=== PATIENT | male | born 1940 | race Caucasian/White ===

== ENCOUNTER 2018-01-19 07:48 | Inpatient (IN) | payer MEDICARE, BC ==
[~2018-01-19] VITALS: Ht 185.4 cm; Wt 197.0 kg
[~2018-01-19 07:48] MED LIST: ACET200V24 PO; ALLO100T PO; AMIO200T57 PO; AMLO10TA4 PO; APIX5TAB3 PO; ASPI-1265 PO; CARV3.12 PO; CHOL400T14 PO; DOXY50CA2 PO; FISH12002 PO; FLO0.4C PO; LOSA25TA96 PO; MULT-1172 PO
[2018-01-19] MEDS ORDERED: tamsulosin 0.4mg capsule PO SCH ×2 (08:00→21:00)
[2018-01-19] MEDS ORDERED: normal saline 1000ML IV soln IVB ONE (08:15)
[2018-01-19 08:25] LABS: BASOPHILS % (AUTO) 0.3 % (0-1); EOSINOPHILS # (AUTO) 0.1 X10'3 (0-0.9); EOSINOPHILS % (AUTO) 0.6 % (0-6); HEMATOCRIT 34.8 % (42.0-52.0); HEMOGLOBIN 11.3 g/dl (14.0-17.9); LYMPHOCYTES # (AUTO) 0.7 X10'3 (1.1-4.8); MEAN CORPUSCULAR HEMOGLOBIN 30.8 PG (27.0-31.0); MEAN CORPUSCULAR HGB CONC 32.5 % (33.0-36.5); MEAN CORPUSCULAR VOLUME 94.8 FL (78-98); MEAN PLATELET VOLUME 6.7 FL (7.4-10.4); MONOCYTES # (AUTO) 0.4 X10'3 (0-0.9); NEUTROPHILS # (AUTO) 11.3 X10'3 (1.8-7.7); NEUTROPHILS % (AUTO) 90.1 % (42-75); PLATELET COUNT 240 X10'3 (140-440); RED BLOOD COUNT 3.67 X10'6 (4.70-6.10); RED CELL DISTRIBUTION WIDTH 16.3 % (11.5-14.5); WHITE BLOOD COUNT 12.5 X10'3 (4.5-11.0)
[2018-01-19 08:39] LABS: ALANINE AMINOTRANSFERASE 17 U/L (12-78); ALBUMIN 3.7 G/DL (3.4-5.0); ALBUMIN/GLOBULIN RATIO 1.1 (1.1-1.5); ALKALINE PHOSPHATASE 98 IU/L (46-116); ANION GAP 13 (8-16); ASPARTATE AMINO TRANSFERASE 11 U/L (10-37); BILIRUBIN,TOTAL 0.8 MG/DL (0.1-1.0); BLOOD UREA NITROGEN 43 MG/DL (7-18); BUN/CREATININE RATIO 16.1 (5.4-32.0); CALCIUM 10.2 MG/DL (8.5-10.1); CHLORIDE 103 MMOL/L (99-107); CREATININE 2.67 MG/DL (0.60-1.10); GLUCOSE 157 MG/DL (70-104); LIPASE 226 U/L (73-393); POTASSIUM 4.2 MMOL/L (3.5-5.1); SODIUM 140 MMOL/L (135-145); TOTAL CARBON DIOXIDE 24.5 MMOL/L (24-32); TOTAL PROTEIN 7.1 G/DL (6.4-8.2); eGFR 23 ML/MIN
[2018-01-19] MEDS ORDERED: piperacillin/tazo 3.375gm/50ml 50 ML IV STA (10:08)
[2018-01-19] MEDS ORDERED: morphine 4 MG/ML inj SYRINge IV ONE (10:55)
[2018-01-19] MEDS ORDERED: magnesium hydroxide 30ml (MOM) UD suspension PO PRN (11:05)
[2018-01-19] MEDS ORDERED: potassium Cl 40MEQ/NS 500ml 500 ML IV PRN ×2 (11:05)
[2018-01-19] MEDS ORDERED: magnesium 4gm in 100ml NS 100 ML IV PRN (11:05)
[2018-01-19] MEDS ORDERED: acetaminophen 325mg tablet PO PRN (11:05)
[2018-01-19] MEDS ORDERED: magnesium/D5W IVPB 50 ML IV PRN (11:05)
[2018-01-19] MEDS ORDERED: mag hydrox/Alum hydrox/simeth 30ml oral suspension PO PRN (11:05)
[2018-01-19] MEDS ORDERED: ondansetron/PF 4mg/2ml inj IV PRN (11:05)
[2018-01-19] MEDS ORDERED: bisacodyl 10mg suppository rectal RC PRN (11:05)
[2018-01-19] MEDS: K and/or MAG REPLACEMENT MC SCH (11:05)
[2018-01-19] MEDS ORDERED: potassium Cl 20 mEq SR tablet PO PRN ×2 (11:05)
[2018-01-19] MEDS ORDERED: magnesium Cl slow-release 64mg tablet PO PRN (11:05)
[2018-01-19] MEDS ORDERED: metoclopramide 5 mg/ml inj IV PRN (11:05)
[2018-01-19] MEDS ORDERED: ASCO500C15 PO (11:55)
[2018-01-19 12:49] VITALS: BP 141/49
[2018-01-19 14:03] LABS: CLARITY,URINE CLEAR (Clear); COLOR,URINE YELLOW (Yellow); GLUCOSE, URINE NEGATIVE (Neg); KETONES,URINE NEGATIVE (Neg); LEUKOCYTE ESTERASE ,URINE NEGATIVE (Neg); NITRITES, URINE NEGATIVE (Neg); OCCULT BLOOD,URINE NEGATIVE (Neg); PH,URINE 5.5 (4.8-8.0); PROTEIN,URINE 30 mg/dl (Neg)
[2018-01-19 14:06] LABS: UA COLLECTION TYPE FOLEY CATH
[2018-01-19 14:33] LABS: AMORPHOUS URATES 1+; BACTERIA,URINE NONE SEEN /HPF (Neg); RBC,URINE 0-2 /HPF (0-2); SQUAMOUS EPITHELIAL CELL,UR NONE SEEN /LPF (FEW); WBC,URINE 0-4 /HPF (0-4)
[2018-01-19] MEDS: normal saline 1000ml 1,000 ML IV SCH ×2 (16:10→21:04)
[2018-01-19 18:00] VITALS: BP 146/44
[2018-01-19] MEDS ORDERED: polyethylene glycol 3350 17gm powd pack PO SCH (21:00)
[2018-01-19] MEDS ORDERED: temazepam 15mg capsule PO PRN (21:00)
[2018-01-19 21:47] LABS: INR 1.2 INR; PARTIAL THROMBOPLASTIN TIME 34 SECONDS (22-32); PROTHROMBIN TIME 12.7 SECONDS (9.0-12.0)
[2018-01-20] VITALS: BP 148/44
[2018-01-20 02:38] LABS: OCCULT BLOOD STOOL NEGATIVE (Neg)
[2018-01-20] MEDS: normal saline 1000ml 1,000 ML IV SCH (02:59)
[2018-01-20 05:08] LABS: BASOPHILS % (AUTO) 0.2 % (0-1); EOSINOPHILS # (AUTO) 0.3 X10'3 (0-0.9); EOSINOPHILS % (AUTO) 2.5 % (0-6); HEMATOCRIT 28.1 % (42.0-52.0); HEMOGLOBIN 9.3 g/dl (14.0-17.9); LYMPHOCYTES # (AUTO) 0.9 X10'3 (1.1-4.8); LYMPHOCYTES % (AUTO) 7.5 % (21-51); MEAN CORPUSCULAR HEMOGLOBIN 31.4 PG (27.0-31.0); MEAN PLATELET VOLUME 7.3 FL (7.4-10.4); MONOCYTES # (AUTO) 0.8 X10'3 (0-0.9); MONOCYTES % (AUTO) 6.4 % (2-12); NEUTROPHILS # (AUTO) 10.2 X10'3 (1.8-7.7); NEUTROPHILS % (AUTO) 83.4 % (42-75); PLATELET COUNT 171 X10'3 (140-440); RED BLOOD COUNT 2.96 X10'6 (4.70-6.10); WHITE BLOOD COUNT 12.3 X10'3 (4.5-11.0)
[2018-01-20 05:29] LABS: ALANINE AMINOTRANSFERASE 12 U/L (12-78); ALBUMIN 2.6 G/DL (3.4-5.0); ALBUMIN/GLOBULIN RATIO 0.9 (1.1-1.5); ALKALINE PHOSPHATASE 81 IU/L (46-116); ANION GAP 8 (8-16); ASPARTATE AMINO TRANSFERASE 9 U/L (10-37); BILIRUBIN,TOTAL 0.7 MG/DL (0.1-1.0); BLOOD UREA NITROGEN 33 MG/DL (7-18); BUN/CREATININE RATIO 16.4 (5.4-32.0); CALCIUM 8.7 MG/DL (8.5-10.1); CHLORIDE 107 MMOL/L (99-107); CREATININE 2.01 MG/DL (0.60-1.10); GLUCOSE 97 MG/DL (70-104); MAGNESIUM 2.3 MG/DL (1.5-2.4); POTASSIUM 4.3 MMOL/L (3.5-5.1); SODIUM 143 MMOL/L (135-145); TOTAL CARBON DIOXIDE 27.9 MMOL/L (24-32); TOTAL PROTEIN 5.5 G/DL (6.4-8.2); eGFR 32 ML/MIN
[2018-01-20 07:00] VITALS: BP 142/49
[2018-01-20] MEDS ORDERED: amiodarone 200mg tablet PO SCH (08:00)
[2018-01-20] MEDS ORDERED: allopurinol 100mg tablet PO SCH (08:00)
[2018-01-20] MEDS ORDERED: aspirin 81mg tab.chew PO SCH (08:00)
[2018-01-20] MEDS ORDERED: amLODIPine 5mg tablet PO SCH (08:00)
[2018-01-20] MEDS: K and/or MAG REPLACEMENT MC SCH (08:00)
[2018-01-20] MEDS ORDERED: tamsulosin 0.4mg capsule PO SCH (21:00)
== END 2018-01-20 13:41 | disposition home health service (06) | DRG 392 ==
LOC: ER 07:48 → ED HOLD 11:04 → SUR 3N 12:21
PROVIDERS: ADMIT Family Medicine; ATTEND Family Medicine
DX: K59.00 Constipation, unspecified (principal); N13.8 Other obstructive and reflux uropathy; K57.32 Diverticulitis of large intestine without perforation or abscess without bleeding; N40.1 Benign prostatic hyperplasia with lower urinary tract symptoms; N18.9 Chronic kidney disease, unspecified; I12.9 Hypertensive chronic kidney disease with stage 1 through stage 4 chronic kidney disease, or unspecified chronic kidney disease; I48.91 Unspecified atrial fibrillation; I35.0 Nonrheumatic aortic (valve) stenosis; K52.9 Noninfective gastroenteritis and colitis, unspecified; M10.9 Gout, unspecified; N28.1 Cyst of kidney, acquired; N39.490 Overflow incontinence; Z90.5 Acquired absence of kidney; Z88.8 Allergy status to other drugs, medicaments and biological substances; Z79.82 Long term (current) use of aspirin; Z79.899 Other long term (current) drug therapy; Z85.828 Personal history of other malignant neoplasm of skin; Z85.528 Personal history of other malignant neoplasm of kidney
CPT/HCPCS: 36415; 74176; 80053; 81001; 82272; 83690; 83735; 84145; 85025; 85610; 85730; 87070; 96374; 96375; 99285; A4315; J2270; J2543; J7030

== ENCOUNTER 2018-06-08 09:38 | Emergency (ER) | payer MEDICARE, BC ==
[~2018-06-08] VITALS: Ht 185.4 cm; Wt 105.6 kg
[~2018-06-08 09:38] MED LIST changes: -ACET200V24 PO; +AMIO200T40 PO; -AMIO200T57 PO; -APIX5TAB3 PO; +ASCO500C15 PO; -CARV3.12 PO; -DOXY50CA2 PO; -FISH12002 PO; -LOSA25TA96 PO
[2018-06-08 11:17] VITALS: BP 176/82
[2018-06-08 11:38] LABS: BASOPHILS # (AUTO) 0.1 X10'3 (0-0.2); BASOPHILS % (AUTO) 0.7 % (0-1); EOSINOPHILS # (AUTO) 0.7 X10'3 (0-0.9); EOSINOPHILS % (AUTO) 8.4 % (0-6); HEMATOCRIT 41.4 % (42.0-52.0); HEMOGLOBIN 13.3 g/dl (14.0-17.9); LYMPHOCYTES # (AUTO) 1.1 X10'3 (1.1-4.8); MEAN CORPUSCULAR HEMOGLOBIN 29.6 PG (27.0-31.0); MEAN CORPUSCULAR HGB CONC 32.2 % (33.0-36.5); MEAN PLATELET VOLUME 7.4 FL (7.4-10.4); MONOCYTES # (AUTO) 0.6 X10'3 (0-0.9); MONOCYTES % (AUTO) 6.9 % (2-12); NEUTROPHILS # (AUTO) 5.7 X10'3 (1.8-7.7); PLATELET COUNT 170 X10'3 (140-440); RED CELL DISTRIBUTION WIDTH 18.7 % (11.5-14.5); WHITE BLOOD COUNT 8.1 X10'3 (4.5-11.0)
[2018-06-08 11:56] LABS: ALANINE AMINOTRANSFERASE 23 U/L (12-78); ALBUMIN 3.8 G/DL (3.4-5.0); ALBUMIN/GLOBULIN RATIO 1.2 (1.1-1.5); ALKALINE PHOSPHATASE 82 IU/L (46-116); ANION GAP 8 (8-16); ASPARTATE AMINO TRANSFERASE 16 U/L (10-37); BILIRUBIN,TOTAL 0.7 MG/DL (0.1-1.0); BLOOD UREA NITROGEN 22 MG/DL (7-18); BUN/CREATININE RATIO 12.6 (5.4-32.0); CALCIUM 10.1 MG/DL (8.5-10.1); CHLORIDE 106 MMOL/L (99-107); CREATININE 1.75 MG/DL (0.60-1.10); GLUCOSE 105 MG/DL (70-104); POTASSIUM 4.7 MMOL/L (3.5-5.1); SODIUM 141 MMOL/L (135-145); eGFR 38 ML/MIN
[2018-06-08 12:04] LABS: ANISOCYTOSIS 2+; PLATELET ESTIMATE NORMAL
== END 2018-06-08 12:21 | disposition home or self-care (01) ==
LOC: ER 09:39
DX: I12.9 Hypertensive chronic kidney disease with stage 1 through stage 4 chronic kidney disease, or unspecified chronic kidney disease (principal); N18.9 Chronic kidney disease, unspecified; I35.0 Nonrheumatic aortic (valve) stenosis; Z88.5 Allergy status to narcotic agent; Z79.899 Other long term (current) drug therapy; Z79.82 Long term (current) use of aspirin; Z98.84 Bariatric surgery status
CPT/HCPCS: 36415; 71045; 80053; 83880; 84484; 85025; 93005; 99285

== ENCOUNTER 2020-08-24 05:43 | Emergency (ER) | payer MEDICARE, BC ==
[~2020-08-24] VITALS: Ht 188 cm; Wt 106.4 kg
[~2020-08-24 05:43] MED LIST changes: -AMIO200T40 PO; +AMIO200T61 PO; -ASCO500C15 PO; +ASCO500C18 PO
[2020-08-24] MEDS ORDERED: acetaminophen 325mg tablet PO STA (05:46)
[2020-08-24 06:24] LABS: BASOPHILS # (AUTO) 0.1 X10'3 (0-0.2); BASOPHILS % (AUTO) 0.8 % (0-1); EOSINOPHILS # (AUTO) 0.7 X10'3 (0-0.9); HEMATOCRIT 35.2 % (42.0-52.0); HEMOGLOBIN 11.8 g/dl (14.0-17.9); LYMPHOCYTES # (AUTO) 1.2 X10'3 (1.1-4.8); LYMPHOCYTES % (AUTO) 16.2 % (21-51); MEAN CORPUSCULAR HEMOGLOBIN 32.6 PG (27.0-31.0); MEAN CORPUSCULAR HGB CONC 33.5 g/dL (33.0-36.5); MEAN CORPUSCULAR VOLUME 97.2 FL (78-98); MONOCYTES # (AUTO) 0.6 X10'3 (0-0.9); MONOCYTES % (AUTO) 7.5 % (2-12); NEUTROPHILS # (AUTO) 4.9 X10'3 (1.8-7.7); NEUTROPHILS % (AUTO) 66.5 % (42-75); PLATELET COUNT 126 X10'3 (140-440); RED BLOOD COUNT 3.62 X10'6 (4.70-6.10); RED CELL DISTRIBUTION WIDTH 15.6 % (11.5-14.5); WHITE BLOOD COUNT 7.4 X10'3 (4.5-11.0)
[2020-08-24 06:33] LABS: ALANINE AMINOTRANSFERASE 22 U/L (12-78); ALBUMIN 3.4 G/DL (3.4-5.0); ALBUMIN/GLOBULIN RATIO 1.3 (1.1-1.5); ALKALINE PHOSPHATASE 75 IU/L (46-116); ANION GAP 8 (8-16); ASPARTATE AMINO TRANSFERASE 12 U/L (10-37); BILIRUBIN,TOTAL 0.6 MG/DL (0.1-1.0); BLOOD UREA NITROGEN 38 MG/DL (7-18); BUN/CREATININE RATIO 18.5 (5.4-32.0); CALCIUM 9.5 MG/DL (8.5-10.1); CHLORIDE 110 MMOL/L (99-107); CREATININE 2.05 MG/DL (0.60-1.10); GLUCOSE 112 MG/DL (70-104); MAGNESIUM 2.1 MG/DL (1.5-2.4); POTASSIUM 5.5 MMOL/L (3.5-5.1); SODIUM 142 MMOL/L (135-145); TOTAL CARBON DIOXIDE 24.1 MMOL/L (24-32); TOTAL PROTEIN 6.1 G/DL (6.4-8.2); eGFR 31 ML/MIN
[2020-08-24] MEDS ORDERED: sodium polystyrene sulfonate 15gm/60ml oral suspension PO ONE (06:45)
[2020-08-24 06:49] LABS: CLARITY,URINE CLEAR (Clear); COLOR,URINE STRAW (Yellow); GLUCOSE, URINE NEGATIVE (Neg); KETONES,URINE NEGATIVE (Neg); LEUKOCYTE ESTERASE ,URINE NEGATIVE (Neg); NITRITES, URINE NEGATIVE (Neg); OCCULT BLOOD,URINE SMALL (Neg); PROTEIN,URINE 100 mg/dl (Neg); UROBILINOGEN,URINE 0.2 E.U/dL (0.2-1.0)
[2020-08-24] MEDS ORDERED: morphine 4 MG/ML inj SYRINge IV ONE (06:50)
[2020-08-24] MEDS ORDERED: HYDROcodone/acetaminophen 10/325mg tab PO ONE (06:50)
[2020-08-24] MEDS ORDERED: ondansetron/PF 4mg/2ml inj IV ONE (06:50)
[2020-08-24] MEDS ORDERED: HYDR-3972 PO (06:53)
[2020-08-24 06:59] LABS: UA COLLECTION TYPE CLN CATCH MIDSTREAM
[2020-08-24 07:01] VITALS: BP 175/57
[2020-08-24 07:01] LABS: BACTERIA,URINE NONE SEEN /HPF (Neg); MUCUS STRANDS NONE SEEN /LPF (Neg); SQUAMOUS EPITHELIAL CELL,UR FEW /LPF (FEW); WBC,URINE 0-4 /HPF (0-4)
[2020-08-24 07:02] LABS: SPERM FEW /HPF (NEGATIVE)
== END 2020-08-24 08:39 | disposition home or self-care (01) ==
LOC: ER 05:43
DX: S22.39XA Fracture of one rib, unspecified side, initial encounter for closed fracture (principal); S61.511A Laceration without foreign body of right wrist, initial encounter; I12.9 Hypertensive chronic kidney disease with stage 1 through stage 4 chronic kidney disease, or unspecified chronic kidney disease; N18.9 Chronic kidney disease, unspecified; R10.84 Generalized abdominal pain; Z85.9 Personal history of malignant neoplasm, unspecified; Z98.890 Other specified postprocedural states; Z88.8 Allergy status to other drugs, medicaments and biological substances; Z79.82 Long term (current) use of aspirin; Z79.899 Other long term (current) drug therapy; W19.XXXA Unspecified fall, initial encounter; Y93.89 Activity, other specified; Y92.89 Other specified places as the place of occurrence of the external cause; Y99.8 Other external cause status
CPT/HCPCS: 36415; 71045; 73502; 80053; 81001; 83735; 84145; 85025; 93005; 96374; 96375; 99285; J2270; J2405